=== PATIENT | female | born 1985 | race Two or more races ===

== ENCOUNTER → 2017-12-27 | Outpatient (REF) | payer SELFPAY ==
[~2017-12-27] MED LIST: ACE3 PO; AMO500 PO; IBU800 PO; PREN-67 PO
== END ==
LOC: ZZSENDIN 12:00
PROVIDERS: ATTEND Surgery
DX: L81.4 Other melanin hyperpigmentation (principal)
CPT/HCPCS: 88305

== ENCOUNTER → 2018-11-22 | Outpatient (REF) ==
--- NOTE | 2018-11-22 15:52 | RADIOLOGY IMAGING REPORT ---
FACILITY: [facility] [place] PATIENT NAME: Lucy Sousa : 1985 MR: [id number] V: [id number] EXAM DATE: ORDERING PHYSICIAN: WAI RODRIGUEZ TECHNOLOGIST: Location: [facility] [place] Patient: Lucy Sousa : 1985 Visit/Account:[id number] Date of Sevice: 11/22/2018 Exam type: FOOT 3 VIEW LEFT History: Nonhealing lesion on bottom medial side of left foot evaluate for foreign body Comparison: None. Findings: No radiopaque foreign bodies are identified in the left foot. There is no evidence of acut e fracture dislocation or significant arthritic change. IMPRESSION: 1. No osteoarticular abnormality left foot is seen. Specifically no evidence of opaque foreign bodi es Report Dictated By: Megan Vázquez MD at 11/22/2018 3:46 PM Report E-Signed By: Megan Vázquez MD at 11/22/2018 3:49 PM WSN:[email or web address]
== END ==
LOC: RAD 14:34
PROVIDERS: ATTEND Nurse Practitioner
DX: L98.9 Disorder of the skin and subcutaneous tissue, unspecified (principal)